=== PATIENT | male | born 1965 | race Caucasian/White ===

== ENCOUNTER 2017-09-27 23:24 | Inpatient (IN) | payer OTHER ==
[~2017-09-27] VITALS: Ht 185.4 cm; Wt 172.4 kg
[2017-09-27 23:49] LABS: HEMOGLOBIN 18.4 G/DL (12.5-16.6); MCH 32.5 PG (29.0-34.0); MCHC 33.5 G/DL (30.0-36.0); PLATELET COUNT 226 K/uL (156-360); RBC DIS.WIDTH-CV 13.3 % (11.8-14.6); RBC DIS.WIDTH-SD 48.3 % (39-53); RED BLOOD COUNT 5.67 M/uL (4.00-5.50); WHITE BLOOD COUNT 11.3 K/uL (4.1-10.2)
[2017-09-27 23:56] LABS: INTER. NORMALIZED RATIO 1.1
[2017-09-27 23:59] LABS: PTT 38.1 SEC (25-37)
[2017-09-28] VITALS (10 sets, daily range): BP systolic 140–190; BP diastolic 73–157
[2017-09-28 00:09] LABS: ALBUMIN 3.5 g/dL (3.2-4.8)
[2017-09-28 00:10] LABS: CHLORIDE 102 mEq/L (99-109); POTASSIUM 4.1 mEq/L (3.7-5.4); SODIUM 137 mEq/L (136-147)
[2017-09-28 00:12] LABS: GLUCOSE 130 mg/dL (70-99); TOTAL PROTEIN 7.6 g/dL (6.4-8.3)
[2017-09-28 00:14] LABS: TOTAL BILIRUBIN 0.4 mg/dL (0.0-1.0)
[2017-09-28 00:15] LABS: ALKALINE PHOSPHATASE 104 IU/L (3-129)
[2017-09-28 00:16] LABS: CREATININE 0.9 mg/dL (0.6-1.3)
[2017-09-28 00:17] LABS: AST (GOT) 41 IU/L (2-34); UREA NITROGEN (BUN) 12 mg/dL (9-23)
[2017-09-28 00:18] LABS: ALT (GPT) 42 IU/L (3-49); TROP-I INTERPRETATION NEGATIVE; TROPONIN-I 0.13 ng/mL (0.0-0.30)
[2017-09-28 00:19] LABS: LIPASE 13 U/L (1.0-51.0)
[2017-09-28 00:20] LABS: GFR ESTIMATE (CALCULATED) > 59 mL/min/ (58.99-99999)
[2017-09-28 01:43] LABS: CARBON DIOXIDE (BICARBONATE) 31.1 MEQ/L (20-31)
[2017-09-28 06:33] LABS: HEMATOCRIT 52.1 % (38.0-50.0); HEMOGLOBIN 16.9 G/DL (12.5-16.6); MCH 31.6 PG (29.0-34.0); MCHC 32.4 G/DL (30.0-36.0); MCV 97.4 FL (86-99); PLATELET COUNT 231 K/uL (156-360); RBC DIS.WIDTH-CV 13.4 % (11.8-14.6); RBC DIS.WIDTH-SD 48.3 % (39-53); RED BLOOD COUNT 5.35 M/uL (4.00-5.50); WHITE BLOOD COUNT 10.4 K/uL (4.1-10.2)
[2017-09-28 06:54] LABS: TROP-I INTERPRETATION NEGATIVE; TROPONIN-I 0.13 ng/mL (0.0-0.30)
[2017-09-28 07:10] LABS: ALBUMIN 3.2 G/DL (3.2-4.8); ALKALINE PHOSPHATASE 78 IU/L (3-129); ALT (GPT) 34 IU/L (3-49); AST (GOT) 32 IU/L (2-34); CHLORIDE 102 MEQ/L (99-109); CREATININE 0.8 MG/DL (0.6-1.3); GFR ESTIMATE (CALCULATED) > 59 mL/min/ (58.99-99999); GLUCOSE 159 mg/dL (70-99); POTASSIUM 4.7 MEQ/L (3.7-5.4); SODIUM 137 MEQ/L (136-147); TOTAL BILIRUBIN 0.3 MG/DL (0.0-1.0); TOTAL PROTEIN 6.6 G/DL (6.4-8.3); UREA NITROGEN (BUN) 12 mg/dL (9-23)
[2017-09-28] MEDS ORDERED: TYLENOL REGULA325 MG PO (10:07)
[2017-09-28 13:37] LABS: TROP-I INTERPRETATION NEGATIVE; TROPONIN-I 0.06 ng/mL (0.0-0.30)
[2017-09-28 17:04] LABS: COMMENTS - BLOOD GASES C+; DEVICE HHFNC; FI02 50 %; O2 FLOW 60 L/MIN; PCO2 76 mm Hg (35-45); PO2 82 mm Hg (80-100); SITE RR; TOTAL RESP RATE 18 resp/min; pH 7.25 (7.35-7.45)
[2017-09-28 17:05] LABS: BASE EXCESS 2.5 mEq/L (-3 to +3); BICARBONATE 33.3 mEq/L (22-26); CARBOXY HGB 1.5 % (0-5); METHEMOGLOBIN 1.5 % (0-1.5)
[2017-09-28 19:30] LABS: BASE EXCESS 4.7 mEq/L (-3 to +3); BICARBONATE 35.4 mEq/L (22-26); CARBOXY HGB 1.7 % (0-5); METHEMOGLOBIN 1.4 % (0-1.5); PCO2 77 mm Hg (35-45); PO2 64 mm Hg (80-100); SITE RR; pH 7.27 (7.35-7.45)
[2017-09-28 19:31] LABS: COMMENTS - BLOOD GASES C+DR IS AWARE; DEVICE HHFNC; FI02 50 %; O2 FLOW 60 L/MIN; TOTAL RESP RATE 28 resp/min
[2017-09-28 23:42] LABS: DEVICE VENT; FI02 40 %; SITE RR
[2017-09-28 23:43] LABS: CARBOXY HGB 3.2 % (0-5); METHEMOGLOBIN 0.6 % (0-1.5); MODE NIV; O2 SATURATION (CALCULATED) 93.8 % (95-99); PCO2 86 mm Hg (35-45); PEEP 6 CM/H20; PO2 76 mm Hg (80-100); PRES. SUPPORT 10 CM/H2O; TOTAL RESP RATE 37 resp/min; pH 7.24 (7.35-7.45)
[2017-09-28 23:44] LABS: BASE EXCESS 5.3 mEq/L (-3 to +3); BICARBONATE 36.9 mEq/L (22-26); COMMENTS - BLOOD GASES C+Y
[2017-09-29] VITALS (25 sets, daily range): BP systolic 73–195; BP diastolic 47–105
[2017-09-29 01:20] LABS: COMMENTS - BLOOD GASES C+; DEVICE VENT; FI02 100 %; MECHANICAL RATE 20 resp/min; MODE AC; PEEP 5 CM/H20; SITE LR; TIDAL VOLUME 450 ML; TOTAL RESP RATE 20 resp/min
[2017-09-29 01:21] LABS: O2 SATURATION (CALCULATED) 96.8 % (95-99); PCO2 109 mm Hg (35-45); PO2 390 mm Hg (80-100); pH 7.13 (7.35-7.45)
[2017-09-29 01:22] LABS: BASE EXCESS 1.9 mEq/L (-3 to +3); BICARBONATE 36.3 mEq/L (22-26); CARBOXY HGB 1.1 % (0-5); METHEMOGLOBIN 1.3 % (0-1.5)
[2017-09-29 01:38] LABS: APPEARANCE CLEAR ((CLEAR)); BILIRUBIN NEGATIVE; BLOOD MODERATE; COLOR YELLOW ((YELLOW)); GLUCOSE (STRIP) NEGATIVE; KETONES NEGATIVE; LEUKOCYTES NEGATIVE; NITRITE NEGATIVE; PROTEIN (STRIP) 100; SPECIFIC GRAVITY 1.032 (1.000-1.030)
[2017-09-29 02:23] LABS: BACTERIA RARE /HPF; EPITHELIAL CELLS RARE /HPF; MUCUS 1+ /LPF; WHITE BLOOD CELLS 0-5 /HPF (0-5)
[2017-09-29 02:37] LABS: COMMENTS - BLOOD GASES C+; DEVICE VENT; FI02 100 %; MECHANICAL RATE 22 resp/min; MODE AC; PCO2 83 mm Hg (35-45); PEEP 5 CM/H20; SITE RR; TIDAL VOLUME 600 ML; TOTAL RESP RATE 22 resp/min; pH 7.21 (7.35-7.45)
[2017-09-29 02:38] LABS: BICARBONATE 33.2 mEq/L (22-26); CARBOXY HGB 1.6 % (0-5); O2 SATURATION (CALCULATED) 97.4 % (95-99); PO2 426 mm Hg (80-100)
[2017-09-29 02:39] LABS: BASE EXCESS 1.8 mEq/L (-3 to +3)
[2017-09-29 04:33] LABS: COMMENTS - BLOOD GASES C+; SITE RR
[2017-09-29 04:34] LABS: DEVICE VENT; FI02 100 %; MECHANICAL RATE 22 resp/min; MODE AC; PCO2 75 mm Hg (35-45); PEEP 5 CM/H20; PO2 474 mm Hg (80-100); TIDAL VOLUME 600 ML; TOTAL RESP RATE 22 resp/min; pH 7.23 (7.35-7.45)
[2017-09-29 04:35] LABS: BICARBONATE 31.4 mEq/L (22-26); CARBOXY HGB 1.2 % (0-5); METHEMOGLOBIN 1.4 % (0-1.5); O2 SATURATION (CALCULATED) 96.8 % (95-99)
[2017-09-29 06:33] LABS: COMMENTS - BLOOD GASES C+; DEVICE VENT; SITE LR
[2017-09-29 06:34] LABS: FI02 100 %; MECHANICAL RATE 24 resp/min; MODE AC; PCO2 77 mm Hg (35-45); PEEP 5 CM/H20; PO2 510 mm Hg (80-100); TIDAL VOLUME 600 ML; TOTAL RESP RATE 24 resp/min; pH 7.21 (7.35-7.45)
[2017-09-29 06:35] LABS: BASE EXCESS 0 mEq/L (-3 to +3); BICARBONATE 30.8 mEq/L (22-26); CARBOXY HGB 0.9 % (0-5); METHEMOGLOBIN 1.4 % (0-1.5); O2 SATURATION (CALCULATED) 96.9 % (95-99)
[2017-09-29 07:53] LABS: BASOPHIL (%) 0.2 % (0-1); EOSINOPHIL (%) 0 % (0-5); HEMATOCRIT 47.8 % (38.0-50.0); IMMATURE GRANULOCYTE (%) 0.5 % (0.0-0.7); LYMPHOCYTE (%) 10.1 % (15-42); LYMPHOCYTE COUNT 1.6 K/uL (1.0-2.8); MCH 31.8 PG (29.0-34.0); MCHC 31.4 G/DL (30.0-36.0); MONOCYTE (%) 5.5 % (3-12); MONOCYTE COUNT 0.9 K/uL (0-0.8); NEUTROPHIL (%) 83.7 % (45-76); PLATELET COUNT 220 K/uL (156-360); RBC DIS.WIDTH-CV 13.7 % (11.8-14.6); RBC DIS.WIDTH-SD 52.1 % (39-53); RED BLOOD COUNT 4.71 M/uL (4.00-5.50); WHITE BLOOD COUNT 15.5 K/uL (4.1-10.2)
[2017-09-29 07:54] LABS: MCV 101.5 FL (86-99)
[2017-09-29 08:24] LABS: ALBUMIN 2.6 G/DL (3.2-4.8); ALKALINE PHOSPHATASE 53 IU/L (3-129); ALT (GPT) 25 IU/L (3-49); AST (GOT) 25 IU/L (2-34); CHLORIDE 103 MEQ/L (99-109); GLUCOSE 166 mg/dL (70-99); MAGNESIUM 2.1 mg/dl (1.3-2.7); SODIUM 138 MEQ/L (136-147)
[2017-09-29 08:25] LABS: CREATININE 1.6 MG/DL (0.6-1.3); GFR ESTIMATE (CALCULATED) 48 mL/min/ (58.99-99999); TOTAL BILIRUBIN 0.4 MG/DL (0.0-1.0); TOTAL PROTEIN 5.4 G/DL (6.4-8.3); UREA NITROGEN (BUN) 28 mg/dL (9-23)
[2017-09-29 13:49] LABS: UR CREATININE CONCENTRATION 87.2 MG/DL
[2017-09-29 21:03] LABS: COMMENTS - BLOOD GASES C+; DEVICE VENT; FI02 40 %; MECHANICAL RATE 24 resp/min; MODE AC; PEEP 10 CM/H20; SITE RR; TIDAL VOLUME 600 ML; TOTAL RESP RATE 26 resp/min
[2017-09-29 21:04] LABS: CARBOXY HGB 1.6 % (0-5); METHEMOGLOBIN 1.3 % (0-1.5); O2 SATURATION (CALCULATED) 92.2 % (95-99); PCO2 53 mm Hg (35-45); PO2 66 mm Hg (80-100); pH 7.31 (7.35-7.45)
[2017-09-29 21:05] LABS: BASE EXCESS -0.7 mEq/L (-3 to +3); BICARBONATE 26.7 mEq/L (22-26)
[2017-09-30] VITALS (23 sets, daily range): BP systolic 105–180; BP diastolic 5–121
[2017-09-30 08:02] LABS: BASOPHIL (%) 0.1 % (0-1); EOSINOPHIL (%) 0 % (0-5); HEMATOCRIT 48.4 % (38.0-50.0); HEMOGLOBIN 15.5 G/DL (12.5-16.6); IMMATURE GRANULOCYTE (%) 0.4 % (0.0-0.7); LYMPHOCYTE (%) 10.7 % (15-42); LYMPHOCYTE COUNT 1.7 K/uL (1.0-2.8); MCH 31.8 PG (29.0-34.0); MCV 99.4 FL (86-99); MONOCYTE (%) 4.5 % (3-12); MONOCYTE COUNT 0.7 K/uL (0-0.8); NEUTROPHIL (%) 84.3 % (45-76); NEUTROPHIL COUNT 13.3 K/uL (1.8-6.4); PLATELET COUNT 215 K/uL (156-360); RBC DIS.WIDTH-CV 13.8 % (11.8-14.6); RBC DIS.WIDTH-SD 50.7 % (39-53); RED BLOOD COUNT 4.87 M/uL (4.00-5.50); WHITE BLOOD COUNT 15.7 K/uL (4.1-10.2)
[2017-09-30 08:39] LABS: ALBUMIN 2.6 G/DL (3.2-4.8); ALKALINE PHOSPHATASE 50 IU/L (3-129); ALT (GPT) 28 IU/L (3-49); AST (GOT) 36 IU/L (2-34); CHLORIDE 106 MEQ/L (99-109); CREATININE 3.1 MG/DL (0.6-1.3); GFR ESTIMATE (CALCULATED) 23 mL/min/ (58.99-99999); GLUCOSE 171 mg/dL (70-99); HIGH-SENS C-REACTIVE PROTEIN 0.92 MG/DL (0.02-0.20); MAGNESIUM 2.5 mg/dl (1.3-2.7); PHOSPHORUS 4.5 mg/dL (2.5-4.9); POTASSIUM 4.1 MEQ/L (3.7-5.4); SODIUM 139 MEQ/L (136-147); TOTAL BILIRUBIN 0.4 MG/DL (0.0-1.0); TOTAL PROTEIN 5.7 G/DL (6.4-8.3); UREA NITROGEN (BUN) 58 mg/dL (9-23)
[2017-09-30 11:03] LABS: APPEARANCE CLOUDY ((CLEAR)); BILIRUBIN NEGATIVE; BLOOD LARGE; COLOR YELLOW ((YELLOW)); GLUCOSE (STRIP) NEGATIVE; KETONES NEGATIVE; LEUKOCYTES NEGATIVE; NITRITE NEGATIVE; PROTEIN (STRIP) NEGATIVE; SPECIFIC GRAVITY 1.011 (1.000-1.030); UROBILINOGEN 0.2 MG/DL (0.2-1.0)
[2017-09-30 11:18] LABS: COARSE GRANULAR CASTS 0-5 /LPF; EPITHELIAL CELLS NONE SEEN /HPF; HYALINE CASTS RARE /LPF; MUCUS 2+ /LPF
[2017-09-30 11:19] LABS: RED BLOOD CELLS TNTC /HPF (0-5)
[2017-09-30 11:20] LABS: BACTERIA RARE /HPF; UCUL ADDED? YES; URIC ACID CRYSTALS 2+ /HPF; WHITE BLOOD CELLS 0-5 /HPF (0-5)
[2017-09-30 11:37] LABS: UR CREATININE CONCENTRATION 76.2 MG/DL
[2017-09-30 11:52] LABS: EOSINOPHILS,URINE NONE SEEN
[2017-10-01] VITALS (22 sets, daily range): BP systolic 129–208; BP diastolic 69–112
[2017-10-01 05:58] LABS: CHLORIDE 105 MEQ/L (99-109); CREATININE 3.1 MG/DL (0.6-1.3); GFR ESTIMATE (CALCULATED) 23 mL/min/ (58.99-99999); GLUCOSE 164 mg/dL (70-99); POTASSIUM 4.6 MEQ/L (3.7-5.4); SODIUM 139 MEQ/L (136-147); UREA NITROGEN (BUN) 67 mg/dL (9-23)
[2017-10-01 11:22] LABS: HEMATOCRIT 48.6 % (38.0-50.0); HEMOGLOBIN 15.6 G/DL (12.5-16.6); MCH 32.2 PG (29.0-34.0); MCHC 32.1 G/DL (30.0-36.0); MCV 100.2 FL (86-99); PLATELET COUNT 211 K/uL (156-360); RBC DIS.WIDTH-CV 14.2 % (11.8-14.6); RED BLOOD COUNT 4.85 M/uL (4.00-5.50); WHITE BLOOD COUNT 15.4 K/uL (4.1-10.2)
[2017-10-01 12:06] LABS: ABS NEUTROPHIL COUNT 14.3; EOSINOPHIL ABS CT 0; MONOCYTES 4.1 % (0-9.0); PLAT.SUFFICIENCY ADEQUATE; SEG.NEUTROPHILS 92.9 % (46.0-76.0)
[2017-10-02] VITALS (13 sets, daily range): BP systolic 139–174; BP diastolic 73–86
[2017-10-02 05:15] LABS: HEMATOCRIT 49.2 % (38.0-50.0); HEMOGLOBIN 15.8 G/DL (12.5-16.6); MCH 31.5 PG (29.0-34.0); MCHC 32.1 G/DL (30.0-36.0); PLATELET COUNT 224 K/uL (156-360); RBC DIS.WIDTH-SD 51.1 % (39-53); RED BLOOD COUNT 5.02 M/uL (4.00-5.50); WHITE BLOOD COUNT 15.3 K/uL (4.1-10.2)
[2017-10-02 05:40] LABS: CHLORIDE 106 MEQ/L (99-109); CREATININE 3.3 MG/DL (0.6-1.3); GFR ESTIMATE (CALCULATED) 21 mL/min/ (58.99-99999); GLUCOSE 133 mg/dL (70-99); POTASSIUM 5.4 MEQ/L (3.7-5.4); SODIUM 141 MEQ/L (136-147); UREA NITROGEN (BUN) 82 mg/dL (9-23)
[2017-10-02 05:41] LABS: MAGNESIUM 2.9 mg/dl (1.3-2.7); PHOSPHORUS 6.1 mg/dL (2.5-4.9)
[2017-10-02 05:48] LABS: ABS NEUTROPHIL COUNT 13.3; ATYPICAL LYMPHOCYTE 1.7 %; EOSINOPHIL ABS CT 0; LYMPHOCYTES 1.7 % (15.0-45.0); MONOCYTES 8.7 % (0-9.0); MYELOCYTES 0.9 %; PLAT.SUFFICIENCY ADEQUATE
[2017-10-03] VITALS (7 sets, daily range): BP systolic 152–180; BP diastolic 63–84
[2017-10-03 04:36] LABS: HEMATOCRIT 47.6 % (38.0-50.0); HEMOGLOBIN 15.7 G/DL (12.5-16.6); MCH 32.2 PG (29.0-34.0); MCV 97.5 FL (86-99); PLATELET COUNT 226 K/uL (156-360); RBC DIS.WIDTH-CV 13.8 % (11.8-14.6); RBC DIS.WIDTH-SD 50.2 % (39-53); RED BLOOD COUNT 4.88 M/uL (4.00-5.50); WHITE BLOOD COUNT 13.2 K/uL (4.1-10.2)
[2017-10-03 04:44] LABS: CHLORIDE 108 mEq/L (99-109); POTASSIUM 5.9 mEq/L (3.7-5.4); SODIUM 142 mEq/L (136-147)
[2017-10-03 04:46] LABS: GLUCOSE 121 mg/dL (70-99)
[2017-10-03 04:50] LABS: GFR ESTIMATE (CALCULATED) 23 mL/min/ (58.99-99999)
[2017-10-03 04:51] LABS: UREA NITROGEN (BUN) 96 mg/dL (9-23)
[2017-10-03 16:29] LABS: CHLORIDE 107 MEQ/L (99-109); CREATININE 3.1 MG/DL (0.6-1.3); GFR ESTIMATE (CALCULATED) 23 mL/min/ (58.99-99999); GLUCOSE 124 mg/dL (70-99); POTASSIUM 5.3 MEQ/L (3.7-5.4); SODIUM 140 MEQ/L (136-147); UREA NITROGEN (BUN) 92 mg/dL (9-23)
[2017-10-04 05:19] VITALS: BP 162/77
[2017-10-04 06:30] LABS: BASOPHIL (%) 0.4 % (0-1); EOSINOPHIL (%) 0 % (0-5); HEMATOCRIT 47.4 % (38.0-50.0); IMMATURE GRANULOCYTE (%) 2.5 % (0.0-0.7); LYMPHOCYTE (%) 8.5 % (15-42); LYMPHOCYTE COUNT 0.8 K/uL (1.0-2.8); MCH 31.9 PG (29.0-34.0); MCHC 33.8 G/DL (30.0-36.0); MCV 94.6 FL (86-99); MONOCYTE (%) 3.4 % (3-12); MONOCYTE COUNT 0.3 K/uL (0-0.8); NEUTROPHIL (%) 85.2 % (45-76); NEUTROPHIL COUNT 8.2 K/uL (1.8-6.4); PLATELET COUNT 212 K/uL (156-360); RBC DIS.WIDTH-CV 13.3 % (11.8-14.6); RBC DIS.WIDTH-SD 46.8 % (39-53); RED BLOOD COUNT 5.01 M/uL (4.00-5.50); WHITE BLOOD COUNT 9.6 K/uL (4.1-10.2)
[2017-10-04 06:35] VITALS: BP 156/74
[2017-10-04 06:53] LABS: CHLORIDE 107 MEQ/L (99-109); CREATININE 2.8 MG/DL (0.6-1.3); GFR ESTIMATE (CALCULATED) 25 mL/min/ (58.99-99999); GLUCOSE 149 mg/dL (70-99); POTASSIUM 5.7 MEQ/L (3.7-5.4); SODIUM 139 MEQ/L (136-147); UREA NITROGEN (BUN) 89 mg/dL (9-23)
[2017-10-04 08:01] VITALS: BP 159/72
[2017-10-04 08:18] LABS: MAGNESIUM 2.8 mg/dl (1.3-2.7); PHOSPHORUS 5.6 mg/dL (2.5-4.9)
[2017-10-04 12:09] VITALS: BP 186/85
[2017-10-04 14:22] LABS: CHLORIDE 105 MEQ/L (99-109); CREATININE 2.6 MG/DL (0.6-1.3); GFR ESTIMATE (CALCULATED) 28 mL/min/ (58.99-99999); GLUCOSE 123 mg/dL (70-99); POTASSIUM 5.5 MEQ/L (3.7-5.4); SODIUM 136 MEQ/L (136-147); UREA NITROGEN (BUN) 93 mg/dL (9-23)
[2017-10-04 16:02] VITALS: BP 174/80
[2017-10-05 00:03] VITALS: BP 178/88
[2017-10-05 03:55] VITALS: BP 141/69
[2017-10-05 05:59] LABS: BASOPHIL (%) 0.4 % (0-1); BASOPHIL COUNT 0.1 K/uL (0-0.1); EOSINOPHIL (%) 0.2 % (0-5); HEMOGLOBIN 15.4 G/DL (12.5-16.6); IMMATURE GRANULOCYTE (%) 2.3 % (0.0-0.7); LYMPHOCYTE COUNT 2.4 K/uL (1.0-2.8); MCH 31.6 PG (29.0-34.0); MCHC 33.5 G/DL (30.0-36.0); MCV 94.5 FL (86-99); MONOCYTE (%) 10.1 % (3-12); MONOCYTE COUNT 1.4 K/uL (0-0.8); NEUTROPHIL COUNT 9.8 K/uL (1.8-6.4); PLATELET COUNT 212 K/uL (156-360); RBC DIS.WIDTH-CV 13.1 % (11.8-14.6); RBC DIS.WIDTH-SD 45.5 % (39-53); RED BLOOD COUNT 4.87 M/uL (4.00-5.50)
[2017-10-05 06:36] LABS: CHLORIDE 106 MEQ/L (99-109); CREATININE 2.3 MG/DL (0.6-1.3); GFR ESTIMATE (CALCULATED) 32 mL/min/ (58.99-99999); POTASSIUM 4.7 MEQ/L (3.7-5.4); SODIUM 141 MEQ/L (136-147); UREA NITROGEN (BUN) 85 mg/dL (9-23)
[2017-10-05 06:46] LABS: GLUCOSE 87 mg/dL (70-99)
[2017-10-05 07:00] VITALS: BP 167/77
== END 2017-10-05 12:54 | disposition home or self-care (01) | DRG 871 ==
LOC: EME 23:24 → EDBD 23:24 → EME 09-28 01:53 → 5EAST 09-28 04:10 → 4WEST 09-28 04:10 → EDOF 09-28 04:10 → ENRESERV 09-28 04:13 → 5EAST 09-28 05:16 → ENRESERV 09-28 11:16 → 4EAST 09-28 13:24 → ENRESERV 09-28 17:35 → 4WEST 09-28 19:37 → ENRESERV 09-28 19:40 → 4WEST 09-28 19:43 → ENRESERV 10-02 13:39 → CANRESERV 10-02 13:39 → ENRESERV 10-02 14:02 → 4EAST 10-02 15:56 → ENRESERV 10-03 11:03 → 5EAST 10-03 12:43
PROVIDERS: Emergency Medicine; Hospitalist; Internal Medicine; Internal Medicine Critical Care Medicine; Internal Medicine Nephrology; Obstetrics & Gynecology; Physician Assistant; Specialist; Student in an Organized Health Care Education/Training Program
PROC: 5A1945Z Respiratory Ventilation, 24-96 Consecutive Hours (ICD-10-PCS; principal; 2017-09-28)
PROC: 0BH17EZ Insertion of Endotracheal Airway into Trachea, Via Natural or Artificial Opening (ICD-10-PCS; 2017-09-28)
PROC: 02HV33Z Insertion of Infusion Device into Superior Vena Cava, Percutaneous Approach (ICD-10-PCS; 2017-09-29)
PROC: 5A09357 Assistance with Respiratory Ventilation, Less than 24 Consecutive Hours, Continuous Positive Airway Pressure (ICD-10-PCS; 2017-10-02)
DX: A41.9 Sepsis, unspecified organism (principal); R65.21 Severe sepsis with septic shock; J15.9 Unspecified bacterial pneumonia; J96.01 Acute respiratory failure with hypoxia; J96.02 Acute respiratory failure with hypercapnia; J44.0 Chronic obstructive pulmonary disease with (acute) lower respiratory infection; J44.1 Chronic obstructive pulmonary disease with (acute) exacerbation; Z68.43 Body mass index [BMI] 50.0-59.9, adult; E66.01 Morbid (severe) obesity due to excess calories; E83.51 Hypocalcemia; E87.5 Hyperkalemia; F17.210 Nicotine dependence, cigarettes, uncomplicated; G47.33 Obstructive sleep apnea (adult) (pediatric); I11.9 Hypertensive heart disease without heart failure; I25.10 Atherosclerotic heart disease of native coronary artery without angina pectoris; J20.9 Acute bronchitis, unspecified; K76.0 Fatty (change of) liver, not elsewhere classified; N14.1 Nephropathy induced by other drugs, medicaments and biological substances; T50.8X5A Adverse effect of diagnostic agents, initial encounter
CPT/HCPCS: 36600; 71045; 71275; 76770; 80048; 80048 91; 80053; 81003; 82436; 82570; 82803; 82948; 83605; 83690; 83735; 83880; 84100; 84133; 84145 90; 84300; 84484; 84540; 85025; 85027; 85610; 85730; 86141; 87040; 87070; 87077; 87086; 87147; 87186; 87205; 87449; 87502; 87631; 87641; 89190; 93005; 93306; 94002; 94003; 94640; 94640 76; 94660; 94667; 94668; 94760; 94799; 97530 GO; 99202; 99281; 99285; C1751; J0456; J0696; J1644; J1815; J1940; J1956; J2250; J2543; J2704; J2920; J2930; J3370; J7030; J7040; J7050; S0028